=== PATIENT | male | born 1995 | race Hispanic/Latino ===

== ENCOUNTER → 2016-07-26 | Outpatient (CLI) | payer SELFPAY ==
--- NOTE | 2016-07-27 04:17 | REP ---
Clinical: Pain. Technique: AP, lateral, bilateral oblique views of the left wrist. Findings: The carpal bones appear intact and normal and without evidence of fracture, dislocation, or degenerative changes. Subtle increased sclerosis along the radial surface at the radiocarpal joint space may reflect sequelae of chronic micro trauma and degenerative change which should be correlated with physical examination. Otherwise normal examination. Impression: Cannot exclude very minimal degenerative changes involving the radial surface at the radiocarpal joint. Otherwise normal examination. Signed by Eren Antonio MD 07/27/2016 04:08 A
== END ==
LOC: M ADAMS 13:35
PROVIDERS: ATTEND Physician Assistant
DX: M25.532 Pain in left wrist (principal)